=== PATIENT | female | born 1995 | race African-American/Black ===

== ENCOUNTER 2019-12-07 09:51 | Emergency (ER) | payer SELFPAY ==
--- NOTE | 2019-12-07 10:12 | ER Document Report ---
ED Medical Screen (RME) - General Chief Complaint: Abdominal Pain Stated Complaint: ABDOMINAL/BACK PAIN Time Seen by Provider: 12/07/19 10:08 - HPI Notes: 12/07/19 24-year-old female to the emergency department with complaints of left lower quadrant abdominal pain and back pain since last night. Denies any nausea, vomiting, diarrhea. Denies any urinary frequency, vaginal discharge, vaginal bleeding. She states that she has not recently been traveling or had a change in her diet. Not been around any sick contacts. I performed a brief medical screening exam on the patient determined that the patient needs further evalu ation and management by main side provider. I have placed initial orders to help expedite care. - Related Data Allergies/Adverse Reactions: No Known Allergies Allergy (Unverified 12/07/19 10:08) Past Medical History - Social History Chew tobacco use (# tins/day): No Frequency of alcohol use: None Drug Abuse: None Past Surgical History: Reports: Hx Section Physical Exam - Vital signs Vitals: Temp Pulse Resp BP Pulse Ox 98.1 F 79 18 114/57 L 99 12/07/19 09:57 12/07/19 09:57 12/07/19 09:57 12/07/19 09:57 12/07/19 09:57 Course - Vital Signs Vital signs: Temp Pulse Resp BP Pulse Ox 98.1 F 79 18 114/57 L 99 12/07/19 10:06 12/07/19 09:57 12/07/19 09:57 12/07/19 09:57 12/07/19 09:57
[2019-12-07 10:37] LABS: APPEARANCE,URINE CLOUDY; BILIRUBIN,URINE NEGATIVE (NEGATIVE); COLOR,URINE YELLOW; GLUCOSE, URINE NEGATIVE (NEGATIVE); KETONES,URINE NEGATIVE (NEGATIVE); PROTEIN,URINE 30 mg/dL (NEGATIVE); URINE SPECIFIC GRAVITY 1.031
[2019-12-07 10:47] LABS: ABSOLUTE EOSINOPHILS # (AUTO) 0.1 10^3/uL (0.0-0.6); ABSOLUTE LYMPHOCYTES (AUTO) 2.3 10^3/uL (0.5-4.7); ABSOLUTE MONOCYTES (AUTO) 0.4 10^3/uL (0.1-1.4); BASOPHILS % (AUTO) 0.3 % (0-2); EOSINOPHILS % (AUTO) 1.4 % (0-6); HEMATOCRIT 32.5 % (36.0-47.0); LYMPHOCYTES % (AUTO) 34.1 % (13-45); MEAN CORPUSCULAR HEMOGLOBIN 29.3 pg (27.0-33.4); MEAN CORPUSCULAR HGB CONC 33.7 g/dL (32.0-36.0); MEAN CORPUSCULAR VOLUME 87 fl (80-97); MONOCYTES % (AUTO) 6.4 % (3-13); PLATELET COUNT 338 10^3/uL (150-450); RED BLOOD COUNT 3.75 10^6/uL (3.72-5.28); RED CELL DISTRIBUTION WIDTH 14.4 % (11.5-14.0); SEGMENTED NEUTROPHILS % (AUTO) 57.8 % (42-78); TOTAL CELLS COUNTED % (AUTO) 100 %; WHITE BLOOD COUNT 6.8 10^3/uL (4.0-10.5)
[2019-12-07 11:02] LABS: ALBUMIN 4.3 g/dL (3.5-5.0); ALKALINE PHOSPHATASE 80 U/L (38-126); ANION GAP 9 (5-19); ASPARTATE AMINO TRANSFERASE 18 U/L (14-36); BILIRUBIN,DIRECT 0.2 mg/dL (0.0-0.4); BILIRUBIN,TOTAL 0.4 mg/dL (0.2-1.3); BLOOD UREA NITROGEN 16 mg/dL (7-20); CALCIUM 9.3 mg/dL (8.4-10.2); CARBON DIOXIDE 24 mmol/L (22-30); CHLORIDE 106 mmol/L (98-107); GLUCOSE 92 mg/dL (75-110); POTASSIUM 4.2 mmol/L (3.6-5.0); TOTAL PROTEIN 7.6 g/dL (6.3-8.2)
[2019-12-07] MEDS ORDERED: KETOROLAC TROMETHAMINE INJ/PF 30 MG/1 ML SDV IM ONE (11:17)
[2019-12-07] MEDS ORDERED: SIMETHICONE 80 MG TAB.CHEW PO ONE (11:17)
--- NOTE | 2019-12-07 11:20 | ER Document Report ---
ED General - General Chief Complaint: Abdominal Pain Stated Complaint: ABDOMINAL/BACK PAIN Time Seen by Provider: 12/07/19 10:08 Notes: 24-year-old female with history of anemia presenting today to the emergency department for left lower quadrant pain starting last night. She took ibuprofen which did not alleviate her pain. She states it feels like a constant gas pain and pressure. She has normal bowel movements. Last one was yesterday. Does not strain to use the bathroom. She has not had this pain before. Her last menstrual period was approximately 2 weeks ago. She denies any pain with urination. Denies any CVA tenderness. She denies any fevers chills, vaginal discharge, vaginal irritation or additional symptoms at this time. - Related Data Allergies/Adverse Reactions: No Known Allergies Allergy (Unverified 12/07/19 10:08) Past Medical History - Social History Smoking Status: Never Smoker Chew tobacco use (# tins/day): No Frequency of alcohol use: None Drug Abuse: None Family History: Reviewed & Not Pertinent Past Surgical History: Reports: Hx Section Review of Systems - Review of Systems Constitutional: No symptoms reported EENT: No symptoms reported Cardiovascular: No symptoms reported Respiratory: No symptoms reported Gastrointestinal: See HPI Genitourinary: No symptoms reported Female Genitourinary: No symptoms reported Musculoskeletal: See HPI Skin: No symptoms reported Hematologic/Lymphatic: No symptoms reported Neurological/Psychological: No symptoms reported Physical Exam - Vital signs Vitals: Temp Pulse Resp BP Pulse Ox 98.1 F 79 18 114/57 L 99 12/07/19 09:57 12/07/19 09:57 12/07/19 09:57 12/07/19 09:57 12/07/19 09:57 Interpretation: Normal - Notes Notes: Adult General: GENERAL: Alert, interacts well. No acute distress HEAD: Normocephalic, atraumatic EYES: Pupils equal, round and reactive to light. Extraocular movements intact. ENT: Oral mucosa moist, tongue midline. Oropharynx unremarkable. Airway patent. Nares patent, sinuses nontender, ear canals unremarkable, TMs intact. No Trismus. NECK: Full range of motion. Supple. Trachea midline. No lymphadenopathy. LUNGS: Clear to auscultation bilaterally, no wheezes, rales, or rhonchi. No respiratory distress. Nontender chest wall. HEART: Regular rate and rhythm. No murmurs, rubs or gallops. ABDOMEN: Soft, tender to palpation left lower quadrant. Nondistended. (-) Arverne sign. Bowel sounds present in all 4 quadrants. No rebound, guarding or masses. GENITOURINARY: Deferred EXTREMITIES: Moves all 4 extremities spontaneously. No edema, normal radial and dorsal pedis pulses bilaterally. No cyanosis. BACK: No cervical, thoracic, lumbar midline tenderness. No saddle anesthesia, normal distal neurovascular exam. Moves all extremities with full range of motion. NEUROLOGICAL: Alert and oriented x3. Normal speech. Cranial nerves II through XII grossly intact. Strength 5/ 5 in all extremities. PSYCH: Normal affect, normal mood. SKIN: Warm, dry, normal turgor. No rashes or lesions noted. Course - Re-evaluation Re-evalutation: 12/07/19 11:16 CBC shows anemia. She states that she supposed be taking iron supplements for this but she does not as it causes her to have constipation. Her CMP is unremarkable. Her urinalysis does show UTI. I will go ahead and order an ultrasound. Urine is negative. 12/07/19 14:53 Her transvaginal ultrasound shows normal Doppler flow suggesting that this is not torsion. Her ultrasound does show a 1.4 hemorrhagic cyst on the left side. Her urinalysis is suggestive of a UTI. I will treat UTI. She states that she does feel better after pain medication. I did discuss the findings with patient. I have prescribed her an antibiotic. I discussed strict return precautions to the emergency department to include worsening symptoms or the development of new symptoms. For pain control she can use tylenol and ibuprofen. Also recommend she has follow-up as soon as possible with her primary care provider. Patient acknowledges and verbalizes understanding of instructions and plan. All questions answered. - Vital Signs Vital signs: Temp Pulse Resp BP Pulse Ox 98.5 F 83 14 114/71 100 12/07/19 14:53 12/07/19 14:53 12/07/19 14:53 12/07/19 14:53 12/07/19 14:53 - Laboratory Result Diagrams: 12/07/19 10:30 12/07/19 10:30 Laboratory results interpreted by me: 12/07/19 12/07/19 10:18 10:30 Hgb 11.0 L Hct 32.5 L RDW 14.4 H Urine Protein 30 H Urine Blood SMALL H Urine Urobilinogen 2.0 H Leukocyte Esterase Rfl LARGE H Discharge - Discharge Clinical Impression: Hemorrhagic cyst of left ovary Anemia Qualifiers: Anemia type: unspecified type Qualified Code(s): D64.9 - Anemia, unspecified UTI (urinary tract infection) Qualifiers: Urinary tract infection type: site unspecified Hematuria presence: with hematuria Qualified Code(s): N39.0 - Urinary tract infection, site not specified Condition: Stable Disposition: HOME, SELF-CARE Instructions: Cephalexin ([facility]), Urinary Tract Infection ([facility]) Additional Instructions: Your ultrasound shows a 1.4 cm left-sided hemorrhagic cyst. Your urinalysis shows a UTI. I will prescribe you an antibiotic for this. Please take the antibiotics as prescribed. I have also ordered you iron supplements to restart treating your anemia. I do recommend that you follow up with your primary care provider as soon as possible for the anemia and close follow up of the cyst. I also recommend that you follow-up with them in regards to your anemia. Please continue to monitor your symptoms. If you have any change to your symptoms or worsening symptoms please return to the emergency department for further evaluation. Prescriptions: Ferrous Sulfate [Ferosul] 325 mg PO DAILY 30 Days #30 tablet Cephalexin Monohydrate [Keflex 500 mg Capsule] 500 mg PO BID 7 Days #14 capsule Forms: Return to Work
--- NOTE | 2019-12-07 14:22 | RADIOLOGY REPORT (SQ) ---
EXAM DESCRIPTION: U/S NON OB PEL W/DOPPLER IMAGES COMPLETED DATE/TIME: 12/07/2019 1:35 pm REASON FOR STUDY: left lower quadrant pain COMPARISON: None. TECHNIQUE: Dynamic and static grayscale images acquired of the pelvis via transabdominal approach an d recorded on PACS. Additional selected color Doppler and spectral images recorded. LIMITATIONS: None. FINDINGS: UTERUS: Contour normal. No mass. Uterus is 7 x 5 x 4 cm in size ENDOMETRIAL STRIPE: No focal or generalized thickening. No masses. Endometrium 13 mm thickness. CERVIX: No nabothian cysts. Closed, 2.4 cm in length. RIGHT OVARY AND DOPPLER: Normal size, 2.9 x 2 x 2.1 cm. No worrisome masses. Normal color flow and D oppler suggests against torsion. Torsion. LEFT OVARY AND DOPPLER: Normal size, 5.9 x 3.1 x 2 point cm. No worrisome masses. 1.4 cm hemorrhagic cyst. Normal color flow and Doppler suggests against torsion. FREE FLUID: None noted. OTHER: No other significant finding. IMPRESSION: ESSENTIALLY NORMAL PELVIC ULTRASOUND BY TRANSABDOMINAL TECHNIQUE. TECHNICAL DOCUMENTATION: JOB ID: [id number] FR[employer] Study Course- All Rights Reserved Rev-07/27 Reading location - IP/workstation name: [id number]
[2019-12-07 14:54] VITALS: BP 114/71
== END 2019-12-07 15:12 | disposition home or self-care (01) ==
LOC: ER 09:51
DX: N83.202 Unspecified ovarian cyst, left side (principal); N39.0 Urinary tract infection, site not specified; D64.9 Anemia, unspecified; R10.9 Unspecified abdominal pain; R10.32 Left lower quadrant pain
CPT/HCPCS: 99285; 96372; 36415; 85025; 81025; 80053; 81001; 76856; 93976; J1885